=== PATIENT | female | born 1980 | race Caucasian/White ===

== ENCOUNTER 2017-04-23 06:58 | Inpatient (IN) | payer OTHER ==
[2017-04-23 08:11] VITALS: BMI 28.7
[2017-04-23] MEDS ORDERED: ELECTROLYTE-148 SOLN 500 ML IV ONE (08:45)
[2017-04-23] MEDS ORDERED: CITRIC ACID/SODIUM CITRATE 30 ML UNIT-DOSE CUP PO ONE (08:45)
[2017-04-23] MEDS ORDERED: morphine SULFATE/Preservative Free 0.5 MG/ML (1cc Syringe) ONE (09:06)
[2017-04-23] MEDS ORDERED: ELECTROLYTE-148 SOLN 1,000 ML IV SCH (09:15)
--- NOTE | 2017-04-23 09:22 | HP ---
Past Medical History - Admission History of Present Illness: 37 yo @ 39 0/7 wks by first trimester ultrasound, EDC 04/30/2017 complicated by: 1. Prior CD, desires repeat; declines offer for TOLAC 2. GBS positive, no PCn allergy 3. AMA - reassuring cell Free DNA; last EFW 49% 04/02/17; reassuring testing Patient presents for routine scheduled CD. She reports movement, denies leakage of fluid, vaginal bleeding or contractions. History Source: Patient Limitations to Obtaining History: No Limitations - Past Medical History Cardiovascular: No: HTN Pulmonary: No: Asthma ...: 4 ...Para: 1 ...Term: 1 ...: 0 ...Spon : 0 ...Induced : 2 ...Multiple Gestation: 0 ...LMP: 07/24/16 ... Weeks Gestation by Dates: 39.0 ...EDC by Dates: 04/30/17 ...EDC by Sono: 04/30/17 Heme/Onc: No: Anemia - Past Surgical History Past Surgical History: Yes: Hx Myomectomy: No Hx Transabdominal Cerclage: No - Smoking History Smoking history: Never smoked - Alcohol/Substance Use Hx Alcohol Use: No History of Substance Use: reports: None - Social History Usual Living Arrangement: Yes: With Spouse History of Recent Travel: Yes ([place]) Home Medications - Allergies Allergies/Adverse Reactions: Allergies Allergy/AdvReac Type Severity Reaction Status Date / Time tramadol Allergy Swelling Verified 04/23/17 07:10 - Home Medications Home Medications: Ambulatory Orders Prenat 115/Iron Fum/Folic/Dss [ 19 Tablet] 1 each PO DAILY 04/05/17 Family Disease History - Family Disease History Family History: Denies Review of Systems - Review of Systems Constitutional: reports: No Symptoms Neck: reports: No Symptoms Cardiovascular: reports: No Symptoms Respiratory: reports: No Symptoms Gastrointestinal: reports: No Symptoms Genitourinary: reports: No Symptoms Musculoskeletal: reports: No Symptoms Integumentary: reports: No Symptoms Neurological: reports: No Symptoms Hematology/Lymphatic: reports: No Symptoms Psychiatric: reports: No Symptoms 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 - Maternity Vital Signs: Vital Signs Temperature 98.3 F 04/23/17 07:44 Pulse Rate 106 H 04/23/17 07:44 Respiratory Rate 20 04/23/17 07:44 Blood Pressure 125/74 04/23/17 07:44 O2 Sat by Pulse Oximetry (%) Constitutional: Yes: Well Nourished, No Distress, Calm Neck: Yes: Supple Cardiovascular: Yes: Regular Rate and Rhythm Lungs: Clear to auscultation - Abdominal Exam/OB Fundal Height: 40 Number of Fetuses: Single Presentation: Vertex Contractions: No Heart Rate (range): 130 Category: I Accelerations: Non-Uniform Decelerations: None - Vaginal Exam/OB Vaginal Bleediing: No Amniotic Membrane Status: Intact - 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 Psychiatric: Yes: Alert, Oriented - Labs Lab Results: PNL: O positive, antibody negative; RPR NR; HBS Ag negative; HIV negative; GCT WNL; Rubella Immune; GBS positive Hemorrhage Risk Assessment - Risk Factors Medium Risk Factors: Yes: None High Risk Factors: Yes: None Risk Score: 1 Risk Level: Medium Risk Assessment/Plan 37 yo @ 39 wks for routine repeat delivery 1. Admit to L&D 2. Routine labs reviewed 3. Reviewed risks of procedure including but not limited to infection, bleeding , damage to surrounding organs such as bowel and bladder, injury to infant. Discussed need for waiting for future > 12 months and risk of abnormal placentation. She expressed understanding 4. Ancef pony trimmer to OR 5. Category I FHT 6. Will proceed with expectant management
[2017-04-23] MEDS ORDERED: ONDANSETRON 4 MG/2 ML VIAL IVPUSH PRN (09:25)
[2017-04-23] MEDS ORDERED: OXYTOCIN 20 UNITS in 0.9% NS 20 UNIT/1,000 ML INFUS.BAG IV ONE (09:49)
[2017-04-23] MEDS ORDERED: MIDAZOLAM HCL 2 MG/2 ML SINGLE DOSE VIAL ONE ×2 (09:56→10:00)
[2017-04-23] MEDS ORDERED: ceFAZolin SODIUM 1 GM VIAL ONE (10:23)
[2017-04-23] MEDS ORDERED: OXYTOCIN 10 UNITS/ML VIAL ONE ×2 (10:24)
[2017-04-23] MEDS ORDERED: BENZOCAINE 20% 57 GM BOTTLE TP PRN (10:25)
[2017-04-23] MEDS ORDERED: METHYLERGONOVINE MALEATE 0.2 MG/1 ML AMP IM PRN (10:25)
[2017-04-23] MEDS ORDERED: WITCH HAZEL 50% (TUCKS) 40 PAD/JAR PAD TP PRN (10:25)
[2017-04-23] MEDS ORDERED: OXYTOCIN 20 UNITS in 0.9% NS 20 UNIT/1,000 ML INFUS.BAG IV SCH (10:30)
--- NOTE | 2017-04-23 10:49 | PN ---
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
[2017-04-23] MEDS ORDERED: IBUPROFEN 800 MG/8 ML IJ IVPB ONE (11:35)
[2017-04-23] MEDS: IBUPROFEN 800 MG/8 ML IJ IVPB PRN ×2 (11:45→21:19)
--- NOTE | 2017-04-23 14:12 | OP ---
DATE OF OPERATION: 04/23/2017 ATTENDING PHYSICIAN: Karl Hunter MD PREOPERATIVE DIAGNOSIS: Intrauterine at 39 weeks, prior section desiring repeat. POSTOPERATIVE DIAGNOSIS: Intrauterine at 39 weeks, prior section desiring repeat. SURGEON: Karl Hunter MD COMBINE MECHANIC: Prasanth Barney MD ANESTHESIA: Dr. Resendez URINE OUTPUT: 200. FINDINGS: Female ROT position, Apgars 9/9, weight 7 pounds 4 ounces, 18 inches. Normal tubes and ovaries bilaterally. INDICATIONS: The patient is a 37-year-old 4, para 1 with a history of prior section desiring repeat. She declined offer for trial of labor after section. She was counseled regarding risks, benefits, alternatives, and complications of the procedure including infection, bleeding, damage to surrounding organs such as bowel or bladder. She expressed understanding and was brought to the operating room. DESCRIPTION OF PROCEDURE: When anesthesia was found to be adequate, the patient was prepped and draped in the normal sterile fashion and placed in dorsal supine position with a leftward tilt. Approximately an 11-cm skin incision was made along the previous scar and incision was brought down to the level of the fascia using the Bovie electrocautery. The fascia was nicked in the midline and extended laterally using the Awan scissors. Attention was brought to the inferior portion, which was tented up using Jovita clamps, dissected off the underlying rectus muscle using the Awan scissors. Attention was brought to the superior portion of the facial incision where in a similar fashion it was tented up using Jovita clamps and dissected off the underlying rectus muscle using the Awan scissors. The rectus muscles were in the midline, and the peritoneum was entered sharply and extended superiorly and inferiorly using the Metzenbaum scissors. The vesicouterine peritoneum was identified and entered sharply, and a bladder flap was created digitally. Hysterotomy was performed, and the hysterotomy extended laterally using the bandage scissors. Amniotomy was performed. Clear fluid was noted. Infant' s head was brought to the operating site. The 's head was delivered. Nuchal cord noted and reduced. The infant's shoulder and body were delivered without difficulty. The cord was clamped and cut. The was handed to awaiting NICU staff present for delivery. The placenta was manually extracted. The uterus was cleared of all clot and debris. The uterus was closed using 0 Biosyn in a running layer. The 2nd layer was an imbricating layer. Vesicouterine peritoneum was reapproximated using 0 Biosyn in a running layer. Bilateral ovaries and tubes were noted and found to be normal appearing. The peritoneum was closed using 2-0 Biosyn in a running fashion. The rectus muscles were reapproximated using 0 Biosyn in interrupted fashion. The fascia was closed using 0 Vicryl in a running fashion. The subcutaneous fat was closed using 2-0 Vicryl in a running fashion. The skin was re-approximated using 3-0 Vicryl. The patient tolerated the procedure well. Estimated blood loss was 600 mL. The patient was brought to the recovery room in stable condition. KARL HUNTER M.D. [id number] MTDD
[2017-04-23] MEDS ORDERED: TUBERCULIN PPD 5 TU/0.1ML SYRINGE (IN PATIENT USE ONLY) ID ONE (16:00)
[2017-04-23] MEDS: IBUPROFEN 600 MG TABLET (FP) PO PRN (17:29)
[2017-04-23] MEDS: ACETAMINOPHEN 325 MG TABLET (FP) PO PRN (17:31)
[2017-04-23] MEDS: SIMETHICONE 80 MG TAB.CHEW (FP) PO PRN (17:32)
[2017-04-24] MEDS: SIMETHICONE 80 MG TAB.CHEW (FP) PO PRN ×4 (05:53→20:44)
[2017-04-24] MEDS: IBUPROFEN 600 MG TABLET (FP) PO PRN ×3 (05:55→20:44)
[2017-04-24] MEDS: ACETAMINOPHEN 325 MG TABLET (FP) PO PRN ×4 (05:56→21:51)
[2017-04-24 06:16] LABS: BASO % 0.7 % (0-2.0); EOS % 1.2 % (0-4.5); HEMATOCRIT 29.3 % (32.4-45.2); HEMOGLOBIN 9.9 GM/dL (10.7-15.3); LYMPH % 18.7 % (8-40); MCH 30.8 pg (25.7-33.7); MCHC 33.7 g/dl (32.0-36.0); MEAN CELL VOLUME 91.4 fl (80-96); MEAN PLT VOLUME 9.9 fl (7.5-11.1); MONO % 5.3 % (3.8-10.2); NEUT % 74.1 % (42.8-82.8); PLATELET COUNT 108 K/MM3 (134-434); WHITE BLOOD COUNT 8.8 K/mm3 (4.0-10.0)
--- NOTE | 2017-04-24 09:00 | PN ---
Progress Note, Physician Chief Complaint: Pt ambulating and voiding, pain controlled, no anesthesia complaints. - Current Medication List Current Medications: Active Medications Acetaminophen (Tylenol -) 650 mg PO Q4H PRN PRN Reason: MODERATE PAIN Last Admin: 04/24/17 05:56 Dose: 650 mg Benzocaine (Americaine 20% [place] -) 1 spray TP PRN PRN PRN Reason: PAIN Bisacodyl (Dulcolax Suppository -) 10 mg RC PRN PRN PRN Reason: CONSTIPATION Diphenhydramine HCl (Benadryl Injection -) 25 mg IVPUSH Q4H PRN PRN Reason: Pruritis Enoxaparin Sodium (Lovenox -) 40 mg SQ DAILY [facility] Parenteral Electrolytes (Plasma-Lyte 148 -) 1,000 mls @ 125 mls/hr IV ASDIR [facility] Last Admin: 04/23/17 08:20 Dose: 125 mls/hr Oxytocin/Sodium Chloride (Normal Saline+20 Units Oxytocin -) 20 unit in 1,000 mls @ 125 mls/hr IV ASDIR [facility] Last Admin: 04/23/17 15:00 Dose: 125 mls/hr Ibuprofen (Motrin -) 600 mg PO Q4H PRN PRN Reason: PAIN Last Admin: 04/24/17 05:55 Dose: 600 mg Ibuprofen (Caldolor Injection -) 800 mg IVPB Q8H PRN PRN Reason: PAIN OR FEVER Last Admin: 04/23/17 21:19 Dose: 800 mg Methylergonovine Maleate (Methergine Injection -) 0.2 mg IM Q4H PRN PRN Reason: Excessive Bleeding (L&D) Ondansetron HCl (Zofran Injection) 4 mg IVPUSH Q4H PRN PRN Reason: NAUSEA Oxycodone HCl (Roxicodone -) 5 mg PO Q4H PRN PRN Reason: PAIN LEVEL 1-5 Stop: 04/24/17 10:24 Multivit/Folic Acid/Iron ( Vitamins (Sjr) -) 1 tab PO DAILY [facility] Simethicone (Mylicon -) 80 mg PO Q4H PRN PRN Reason: GAS Last Admin: 04/24/17 05:53 Dose: 80 mg Witch Charito/Glycerin (Tucks Pads -) 1 pad TP PRN PRN PRN Reason: PAIN - Objective Vital Signs: Vital Signs Temperature 98.7 F 04/24/17 07:45 Pulse Rate 84 04/24/17 07:45 Respiratory Rate 20 04/24/17 08:00 Blood Pressure 130/82 04/24/17 07:45 O2 Sat by Pulse Oximetry (%) 99 04/23/17 21:00 Constitutional: Yes: Well Nourished, No Distress, Calm Musculoskeletal: Yes: WNL Neurological: Yes: WNL, Alert, Oriented ...Motor Strength: WNL Labs: CBC, BMP 04/24/17 05:55 Assessment/Plan POD#1 s/p under spinal with duramorph. Doing well. D/C from anesthesia care.
--- NOTE | 2017-04-24 09:14 | PN ---
Post Progress Note - Subjective Subjective: 37yo s/p Repeat c/section no complains pain controled +voiding, + flatus no n/v Post Day: 1 Type of Delivery: Repeat C/S Vital Signs: Vital Signs Temperature 98.7 F 04/24/17 07:45 Pulse Rate 84 04/24/17 07:45 Respiratory Rate 20 04/24/17 09:00 Blood Pressure 130/82 04/24/17 07:45 O2 Sat by Pulse Oximetry (%) 99 04/23/17 21:00 Breast Exam: Yes: Soft Uterus: Yes: Fundus Firm Incision: Yes: Dressing dry and intact Abdomen/GI: Yes: Abdomen soft Lochia: Yes: Rubra Lochia, amount: Small Extremities: Yes: Calves non-tender Activity: Ambulating - Labs Labs: CBC WBC 8.8 K/mm3 (4.0-10.0) 04/24/17 05:55 RBC 3.20 M/mm3 (3.60-5.2) L D 04/24/17 05:55 Hgb 9.9 GM/dL (10.7-15.3) L D 04/24/17 05:55 Hct 29.3 % (32.4-45.2) L D 04/24/17 05:55 MCV 91.4 fl (80-96) 04/24/17 05:55 MCH 30.8 pg (25.7-33.7) 04/24/17 05:55 MCHC 33.7 g/dl (32.0-36.0) 04/24/17 05:55 RDW 13.0 % (11.6-15.6) 04/24/17 05:55 Plt Count 108 K/MM3 (134-434) L D 04/24/17 05:55 MPV 9.9 fl (7.5-11.1) 04/24/17 05:55 Neutrophils % 74.1 % (42.8-82.8) 04/24/17 05:55 Lymphocytes % 18.7 % (8-40) 04/24/17 05:55 Monocytes % 5.3 % (3.8-10.2) 04/24/17 05:55 Eosinophils % 1.2 % (0-4.5) D 04/24/17 05:55 Basophils % 0.7 % (0-2.0) D 04/24/17 05:55 Assessment/Plan 37yo POD # 1 s/p C/section VSS, Afebrile Doing well Mild post op Thrombocytopenia No PEC symptoms, BPs wnl Reports similar occurrence with last Repeat CBC 04/25/17 Encourage ambulation Regular diet
[2017-04-24] MEDS: ENOXAPARIN NA (PORCINE) 40 MG/0.4 ML DISP.SYRIN SQ SCH (09:15)
[2017-04-24] MEDS: PRENATAL VITAMINS W/ FOLIC ACID TABLET (FP) PO SCH (10:12)
[2017-04-24] MEDS ORDERED: BISACODYL 10 MG SUPP.RECT RC PRN (10:25)
[2017-04-24] MEDS: oxyCODONE HCL 5 MG TABLET PO PRN ×2 (16:52→20:44)
[2017-04-25] MEDS: oxyCODONE HCL 5 MG TABLET PO PRN ×5 (00:56→21:02)
[2017-04-25] MEDS: IBUPROFEN 600 MG TABLET (FP) PO PRN ×5 (00:57→21:03)
[2017-04-25] MEDS: ACETAMINOPHEN 325 MG TABLET (FP) PO PRN ×5 (00:57→21:03)
[2017-04-25] MEDS: SIMETHICONE 80 MG TAB.CHEW (FP) PO PRN ×5 (00:57→21:02)
[2017-04-25 08:42] LABS: BASO % 0.4 % (0-2.0); EOS % 2.7 % (0-4.5); HEMATOCRIT 28.4 % (32.4-45.2); HEMOGLOBIN 9.4 GM/dL (10.7-15.3); LYMPH % 25.8 % (8-40); MEAN CELL VOLUME 90.9 fl (80-96); MEAN PLT VOLUME 9.8 fl (7.5-11.1); MONO % 6.4 % (3.8-10.2); NEUT % 64.7 % (42.8-82.8); PLATELET COUNT 129 K/MM3 (134-434); RBC 3.13 M/mm3 (3.60-5.2); RDW 12.7 % (11.6-15.6); WHITE BLOOD COUNT 8.5 K/mm3 (4.0-10.0)
--- NOTE | 2017-04-25 08:55 | PN ---
Post Progress Note - Subjective Subjective: No complaints Post Day: 2 Type of Delivery: Repeat C/S Vital Signs: Vital Signs Temperature 98.3 F 04/24/17 21:06 Pulse Rate 91 H 04/24/17 21:06 Respiratory Rate 18 04/24/17 21:06 Blood Pressure 133/66 04/24/17 21:06 O2 Sat by Pulse Oximetry (%) 99 04/23/17 21:00 Breast Exam: Yes: Soft Uterus: Yes: Fundus @ umbilicus Incision: Yes: Dressing dry and intact Abdomen/GI: Yes: Abdomen soft, Tolerating PO Lochia: Yes: Rubra Lochia, amount: Small Extremities: Yes: Calves non-tender Perineum: Yes: Intact Activity: Ambulating - Labs Labs: CBC WBC 8.5 K/mm3 (4.0-10.0) 04/25/17 08:00 RBC 3.13 M/mm3 (3.60-5.2) L 04/25/17 08:00 Hgb 9.4 GM/dL (10.7-15.3) L 04/25/17 08:00 Hct 28.4 % (32.4-45.2) L 04/25/17 08:00 MCV 90.9 fl (80-96) 04/25/17 08:00 MCH 30.0 pg (25.7-33.7) 04/25/17 08:00 MCHC 33.0 g/dl (32.0-36.0) 04/25/17 08:00 RDW 12.7 % (11.6-15.6) 04/25/17 08:00 Plt Count 129 K/MM3 (134-434) L 04/25/17 08:00 MPV 9.8 fl (7.5-11.1) 04/25/17 08:00 Neutrophils % 64.7 % (42.8-82.8) 04/25/17 08:00 Lymphocytes % 25.8 % (8-40) D 04/25/17 08:00 Monocytes % 6.4 % (3.8-10.2) 04/25/17 08:00 Eosinophils % 2.7 % (0-4.5) D 04/25/17 08:00 Basophils % 0.4 % (0-2.0) 04/25/17 08:00 Assessment/Plan 37yo P2 s/p repeat LT C/S, doing well stable, afebrile. Plt count inceased Pt is asymptomatic for anemia care instructions reviewed. Continue routine postop care. Ambulation encouraged.
[2017-04-25] MEDS: PRENATAL VITAMINS W/ FOLIC ACID TABLET (FP) PO SCH (10:34)
[2017-04-25] MEDS: ENOXAPARIN NA (PORCINE) 40 MG/0.4 ML DISP.SYRIN SQ SCH (10:34)
[2017-04-25 22:01] VITALS: TEMP 99
[2017-04-26] MEDS: IBUPROFEN 600 MG TABLET (FP) PO PRN ×3 (01:49→11:26)
[2017-04-26] MEDS: SIMETHICONE 80 MG TAB.CHEW (FP) PO PRN ×3 (01:49→11:26)
[2017-04-26] MEDS: ACETAMINOPHEN 325 MG TABLET (FP) PO PRN ×3 (01:49→11:26)
[2017-04-26] MEDS: oxyCODONE HCL 5 MG TABLET PO PRN ×3 (01:50→11:27)
[2017-04-26 07:50] LABS: BASO % 0.5 % (0-2.0); EOS % 3.8 % (0-4.5); HEMATOCRIT 29.4 % (32.4-45.2); HEMOGLOBIN 9.8 GM/dL (10.7-15.3); LYMPH % 32.7 % (8-40); MCH 30.1 pg (25.7-33.7); MCHC 33.2 g/dl (32.0-36.0); MEAN CELL VOLUME 90.5 fl (80-96); MEAN PLT VOLUME 9.6 fl (7.5-11.1); MONO % 5.7 % (3.8-10.2); NEUT % 57.3 % (42.8-82.8); PLATELET COUNT 148 K/MM3 (134-434); RBC 3.25 M/mm3 (3.60-5.2); RDW 13.2 % (11.6-15.6); WHITE BLOOD COUNT 7.9 K/mm3 (4.0-10.0)
--- NOTE | 2017-04-26 08:15 | PN ---
Post Progress Note - Subjective Subjective: Patient without acute complaints. Reports tolerating oral intake without nausea or vomiting. Ambulating without dizziness. Denies fevers or chills. Pain well controlled with oral pain medication. without difficulty. Passing flatus. Post Day: 3 Type of Delivery: Repeat C/S Vital Signs: Vital Signs Temperature 99.0 F 04/25/17 22:00 Pulse Rate 96 H 04/25/17 22:00 Respiratory Rate 18 04/25/17 22:00 Blood Pressure 131/89 04/25/17 22:00 O2 Sat by Pulse Oximetry (%) 99 04/23/17 21:00 Breast Exam: Yes: Soft Uterus: Yes: Fundus Firm, Fundus below umbilicus Incision: Yes: Sutures intact. No: Redness, Oozing Abdomen/GI: Yes: Abdomen soft, Passing flatus, Tolerating PO. No: Tender Lochia: Yes: Serosa Lochia, amount: Small Extremities: Yes: Calves non-tender, Edema (trace) Activity: Ambulating - Labs Labs: CBC WBC 8.5 K/mm3 (4.0-10.0) 04/25/17 08:00 RBC 3.13 M/mm3 (3.60-5.2) L 04/25/17 08:00 Hgb 9.4 GM/dL (10.7-15.3) L 04/25/17 08:00 Hct 28.4 % (32.4-45.2) L 04/25/17 08:00 MCV 90.9 fl (80-96) 04/25/17 08:00 MCH 30.0 pg (25.7-33.7) 04/25/17 08:00 MCHC 33.0 g/dl (32.0-36.0) 04/25/17 08:00 RDW 12.7 % (11.6-15.6) 04/25/17 08:00 Plt Count 129 K/MM3 (134-434) L 04/25/17 08:00 MPV 9.8 fl (7.5-11.1) 04/25/17 08:00 Neutrophils % 64.7 % (42.8-82.8) 04/25/17 08:00 Lymphocytes % 25.8 % (8-40) D 04/25/17 08:00 Monocytes % 6.4 % (3.8-10.2) 04/25/17 08:00 Eosinophils % 2.7 % (0-4.5) D 04/25/17 08:00 Basophils % 0.4 % (0-2.0) 04/25/17 08:00 Assessment/Plan 37 yo POD # 3 s/p repeat CD, afebrile, vital signs stable, doing well, improving plt 1. Patient stable for discharge home today. 2. Patient encouraged to contact MD for: - Severe pain not controlled by oral pain medication - Fevers or chills - Nausea or vomiting, intolerance of oral intake - Incision redness, tenderness or discharge 3. Patient to follow up in office in 1-2 weeks for incision check, 4-6 weeks for visit
--- NOTE | 2017-04-26 08:45 | DS ---
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: Yes Name: Linda Valdivia Infant Gender: Female Weight: 7 lb 4 oz Position: OT Total Hours ROM (Hrs/Mins): 1 min - 1 Minute Total Score: 9 5 Minutes Total Score: 9 - Feeding Plan Initial Plan: Exclusive throughout hospitalization Discharge Summary Reason For Visit: CSECTION Current Active Problems delivery delivered (Acute) Procedures: Principal: delivery Hospital Course: patient underwent routine scheduled CD She remained afebrile, vital signs stable, fulfilling all criteria for discharge home POD #3 Condition: Good - Instructions Diet, Activity, Other Instructions: Physical activity Resume your normal everyday activity as tolerated no heavy lifting or exercise until seen by your surgeon. You may walk unlimited cecil of and climb stairs. You may resume driving the car when you feel safe and comfortable behind the wheel. No sexual activity as instructed. Wound care If you have a bandage, leave it on, and keep dry for 48-72 hours. After that time discard the outer bandage. If they are tapes on the skin under the out of bandage leave them in place. They will peel off in the next 7 to 10 days. Do Not Peel them off. You may shower the day after surgery. If there are tapes present on the skin, you may shower over them. Diet There are no dietary restrictions. Eat healthy, high-fiber foods. Drink 6 to 8 glasses of liquid each day. This will assist in keeping your bowels are regular. Pain management You may take Tylenol or acetaminophen or Ibuprofen (for example, Motrin, Advil etc.) from my pain prescription medication is ordered should be taken as prescribed for moderate to severe pain. Call MD for any of the following: Severe pain not relieved by medication Fever of 101 or higher Excessive bleeding or drainage on dressing Inability to urinate Referrals: Elizabeth Myers MD [Staff Physician] - Disposition: HOME - Home Medications Comprehensive Discharge Medication List: Ambulatory Orders Prenat 115/Iron Fum/Folic/Dss [ 19 Tablet] 1 each PO DAILY 04/05/17 Ibuprofen [Motrin -] 600 mg PO QID #28 tablet 04/26/17 Oxycodone HCl/Acetaminophen [Percocet 5-325 mg Tablet -] 1 - 2 tab PO Q6H #20 tab MDD 6 04/26/17
[2017-04-26 09:01] VITALS: BP 122/67; PULSE 82
[2017-04-26] MEDS: PRENATAL VITAMINS W/ FOLIC ACID TABLET (FP) PO SCH (09:52)
[2017-04-26] MEDS: ENOXAPARIN NA (PORCINE) 40 MG/0.4 ML DISP.SYRIN SQ SCH (09:52)
--- NOTE | 2017-05-01 17:21 | PATH ---
Surgical Pathology Report Patient Name: NALINI STUART [facility]. Rec. 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 Electronically Signed Tiera Pickard M.D. Gross Description The specimen is received fresh labeled placenta and is a 562 gram, 18.5 x 17.0 x 3.1 cm. placenta with attached membranes and umbilical cord. The attached membranes are wu, translucent with focal opacities and insert marginally. The umbilical cord measures 36 cm. in length and averages 1.0 cm. in diameter. The cord inserts centrally. No true knots or strictures are identified. Cut surface of the umbilical cord reveals 3 vessels. The surface is wall-blue with minimal fibrin deposition and appropriate caliber vessels. The maternal surface is red-brown with focal defects. Sectioning reveals red-brown, spongy parenchyma. No lesions are identified. Chef'S Assistant sections are submitted in three cassettes as follows: 1- membrane rolls and umbilical cord; 2-3- full thickness sections of placenta. /04/26/201704/26/2017
== END 2017-04-26 11:50 | disposition home or self-care (01) | DRG 540 ==
LOC: JLDR 06:58 → EDBD 09:00 → J3W 12:15
PROVIDERS: ADMIT Obstetrics & Gynecology; ATTEND Obstetrics & Gynecology
PROC: 10D00Z1 Extraction of Products of Conception, Low, Open Approach (ICD-10-PCS; principal; 2017-04-23)
DX: O34.211 Maternal care for low transverse scar from previous cesarean delivery (principal); O99.824 Streptococcus B carrier state complicating childbirth; O69.81X0 Labor and delivery complicated by cord around neck, without compression, not applicable or unspecified; O99.02 Anemia complicating childbirth; D64.9 Anemia, unspecified; Z3A.39 39 weeks gestation of pregnancy; Z37.0 Single live birth
CPT/HCPCS: 36415; 85025; 88307-TC